=== PATIENT | male | born 1935 | race Caucasian/White ===

== ENCOUNTER 2016-05-20 16:57 | Emergency (ER) | payer OTHER, BC ==
[~2016-05-20] VITALS: Ht 182.9 cm; Wt 100.1 kg
[~2016-05-20 16:57] MED LIST: ACCUPRIL5 MG PO; ACETAMINOPHEN650 M5 PO; ADVIL200 MG; AMLODIPINE BES2.5 MG PO; ASPERDRINK81 MG PO; ASPIR 8181 M1 PO; ASPIR-MOX IB C325 MG; BACTRIM,SEPT1 TABLET PO; BENADRYL25 MG PO; CARDIZEM CD,CA240 MG PO; CARDIZEM CD120 MG PO; CARTIA XT120 MG PO; CIPRO500 MG PO; CYCLOBENZAPRINE10 MG PO; EYE VITAMIN-MI1 EACH PO; FISH OIL OMEGA1 EACH PO; FLOMAX0.4 M1; FUROSEMIDE40 MG PO; IBUPROFEN600 MG PO; LEVAQUIN750 MG PO; LIPITOR40 MG PO; LISINOPRIL2.5 MG PO; MACUVITE EYE C1 EACH PO; NORVASC5 MG PO; PYRIDIUM100 MG PO; QUINAPRIL HCL20 MG PO; SELENIUM200 MCG PO; SPIRIVA RESPIMAT4 GM IH; SYSTANE BALANCE10 ML BOTH EYES; TAZTIA XT300 M1; TRADJENTA5 MG PO; TYLENOL WITH C1 EACH PO; ULTRAM50 MG PO; URO-MP CAPSULE1 EACH PO; WELLBUTRIN XL150 MG PO; XARELTO15 MG PO; ZESTRIL20 MG PO
[2016-05-20 17:25] LABS: HEMATOCRIT 39.5 % (38.0-50.0); MCH 28.6 PG (29.0-34.0); MCHC 33.4 G/DL (30.0-36.0); MCV 85.5 FL (86-99); MEAN PLAT.VOLUME 9.8 uM^3 (9.0-12.4); PLATELET COUNT 143 K/uL (156-360); RBC DIS.WIDTH-CV 17.5 % (11.8-14.6); RBC DIS.WIDTH-SD 54.4 % (39-53); RED BLOOD COUNT 4.62 M/uL (4.00-5.50); WHITE BLOOD COUNT 9.9 K/uL (4.1-10.2)
[2016-05-20 17:30] LABS: ADD MIUA? YES; BILIRUBIN NEGATIVE; BLOOD SMALL; GLUCOSE (STRIP) NEGATIVE; KETONES NEGATIVE; LEUKOCYTES LARGE; NITRITE NEGATIVE; PROTEIN (STRIP) 30; SPECIFIC GRAVITY 1.004 (1.000-1.030); UROBILINOGEN 0.2 MG/DL (0.2-1.0)
[2016-05-20 17:33] LABS: CHLORIDE 104 mEq/L (99-109); POTASSIUM 4.4 mEq/L (3.7-5.4); SODIUM 141 mEq/L (136-147)
[2016-05-20 17:35] LABS: GLUCOSE 103 mg/dL (70-99)
[2016-05-20 17:36] LABS: ANION GAP 9 MEQ/L (2-14)
[2016-05-20 17:38] LABS: GFR ESTIMATE (CALCULATED) 34 mL/min/
[2016-05-20 17:39] LABS: UREA NITROGEN (BUN) 29 mg/dL (9-23)
[2016-05-20 17:43] LABS: COLOR GREEN ((YELLOW))
[2016-05-20 17:53] LABS: BACTERIA RARE /HPF; CASTS NONE SEEN /LPF; CRYSTALS NONE SEEN; EPITHELIAL CELLS NONE SEEN /HPF; MUCUS NONE SEEN /LPF; RED BLOOD CELLS NONE SEEN /HPF (0-5); UCUL ADDED? YES; WHITE BLOOD CELLS TNTC /HPF (0-5)
[2016-05-20] MEDS ORDERED: KEFLEX500 MG PO (19:15)
[2016-05-20 19:33] VITALS: BP 125/75
== END 2016-05-20 19:33 | disposition home or self-care (01) ==
LOC: EME 16:57
DX: N39.0 Urinary tract infection, site not specified (principal); E78.5 Hyperlipidemia, unspecified; E11.9 Type 2 diabetes mellitus without complications; Z79.82 Long term (current) use of aspirin; Z87.891 Personal history of nicotine dependence
CPT/HCPCS: 80048; 81003; 85027; 87077; 87086; 87186; 99281; 99284

== ENCOUNTER 2017-05-08 10:35 | Day surgery (SDC) | payer OTHER, BC ==
[~2017-05-08] VITALS: Ht 182.9 cm; Wt 106.1 kg
[~2017-05-08 10:35] MED LIST changes: +KEFLEX500 MG PO; +MACRODANTIN50 M1 PO; +WELLBUTRIN SR150 MG PO
[2017-05-08 11:26] VITALS: BP 121/79
[2017-05-08 15:15] VITALS: BP 134/65
== END 2017-05-08 16:15 | disposition home or self-care (01) ==
LOC: SDC 10:35
PROVIDERS: Orthopaedic Surgery Hand Surgery
DX: G56.01 Carpal tunnel syndrome, right upper limb (principal); G56.21 Lesion of ulnar nerve, right upper limb; M65.841 Other synovitis and tenosynovitis, right hand; M65.321 Trigger finger, right index finger; M65.331 Trigger finger, right middle finger; I10 Essential (primary) hypertension; E11.9 Type 2 diabetes mellitus without complications; Z85.51 Personal history of malignant neoplasm of bladder; Z87.891 Personal history of nicotine dependence; Z79.82 Long term (current) use of aspirin; Z79.01 Long term (current) use of anticoagulants
CPT/HCPCS: 82948; J0690; J2250; J2405; J3010; S0020